=== PATIENT | female | born 1930 | race Caucasian/White ===

== ENCOUNTER 2016-07-03 | Inpatient (IN) | payer MEDICARE, OTHER ==
[~2016-07-03] MED LIST: ACCUPRIL20 MG PO; ADULT LOW DOSE81 MG PO; AMIODARONE HCL200 M1 PO; ASCORBIC ACID500 MG PO; ASPIRIN325 M3 PO; BACTRIM DS TAB1 EAC2 PO; CALCIUM500 M1 PO; CARAFATE1 G PO; CULTURELLE1 EAC1 PO; FAMOTIDINE20 M2; FLAGYL500 MG PO; LIPITOR10 MG PO; LIPITOR20 M1 PO; LOPRESSOR25 MG/TA7 PO; MAGNESIUM OXID400 M1 PO; MELOXICAM15 MG PO; METOPROLOL TART25 M1 PO; NORCO 5-325 TA1 EACH PO; NORVASC10 M2 PO; NORVASC10 MG PO; POTASSIUM CHLO20 ME3 PO; PRADAXA150 MG PO; PRENATAL-U CAPS1 CAP PO; PRILOSEC20 MG PO; RANITIDINE HCL150 M3 PO; TYLENOL325 M2 PO; ULTRAM50 M1 PO; VANCOMYCIN25 MG/1 ML PO; VITAMIN D3 1,01 EACH PO; VITAMIN D32000 UNI1 PO; VITAMIN D32000 UNI3 PO
[2016-07-04] MEDS ORDERED: COLACE100 M1 PO (11:16)
[2016-07-04] MEDS ORDERED: NORCO 5-325 TA1 EACH PO (11:17)
== END 2016-07-04 17:20 | DRG 331 ==
DX: K62.3 Rectal prolapse (principal); I48.91 Unspecified atrial fibrillation; N81.10 Cystocele, unspecified; R32 Unspecified urinary incontinence; E78.5 Hyperlipidemia, unspecified; I10 Essential (primary) hypertension; K21.9 Gastro-esophageal reflux disease without esophagitis; M47.9 Spondylosis, unspecified; M81.0 Age-related osteoporosis without current pathological fracture; Z96.649 Presence of unspecified artificial hip joint; Z79.82 Long term (current) use of aspirin